=== PATIENT | female | born 1980 | race African-American/Black ===

== ENCOUNTER 2017-06-19 15:18 | Emergency (ER) | payer OTHER ==
[~2017-06-19 15:18] MED LIST: HYDR-971 PO
[2017-06-19 15:30] VITALS: BP 126/81
--- NOTE | 2017-06-19 16:10 | PHYS DOC ---
Past History Past Medical History: No Pertinent History Past Surgical History: Other Smoking: Less than 1pk/day Alcohol Use: None Drug Use: None Adult General Chief Complaint Chief Complaint: OB/UTERINE CONTRACTIONS HPI HPI 37-year-old female patient at 38 weeks of gestation complaining of abdominal contraction since this morning that are 10-12 minutes apart and getting closer. Patient states she feels movement. Patient denies vaginal bleeding or gush of fluid. Patient states she had with her last delivery but plans to have vaginal delivery with current . Patient states she had contraction 3 days ago and was seen at [facility] with 2 cm dilatation and was sent home. Review of Systems Review of Systems Constitutional: Denies fever or chills [] Eyes: Denies change in visual acuity, redness, or eye pain [] HENT: Denies nasal congestion or sore throat [] Respiratory: Denies cough or shortness of breath [] Cardiovascular: No additional information not addressed in HPI [] GI: Reports abdominal pain, denies nausea, vomiting, bloody stools or diarrhea [ ] : Denies dysuria or hematuria [] Musculoskeletal: Denies back pain or joint pain [] Integument: Denies rash or skin lesions [] Neurologic: Denies headache, focal weakness or sensory changes [] Endocrine: Denies polyuria or polydipsia [] All other systems were reviewed and found to be within normal limits, except as documented in this note. Allergies Allergies Allergies Coded Allergies Type Severity Reaction Last Updated Verified No Known Drug Allergies 02/14/16 No Physical Exam Physical Exam Constitutional: Well developed, well nourished, mild distress, non-toxic appearance. [] HENT: Normocephalic, atraumatic Eyes: PERRLA, EOMI, conjunctiva normal, no discharge. [] Neck: Normal range of motion, no tenderness, supple, no stridor. [] Cardiovascular:Heart rate regular rhythm, no murmur [] Lungs & Thorax: Bilateral breath sounds clear to auscultation [] Abdomen: Bowel sounds normal, soft, no tenderness, no masses, no pulsatile masses, gravid abdomen, no contraction, heart rate 173. Vaginal exam with present of sleeve sewer showed limited by rotation with 60% effacement and stage of -1. [] Skin: Warm, dry, no erythema, no rash. [] Back: No tenderness, no CVA tenderness. [] Extremities: No tenderness, no cyanosis, no clubbing, ROM intact, no edema. [] Neurologic: Alert and oriented X 3, normal motor function, normal sensory function, no focal deficits noted. [] Psychologic: Affect normal, judgement normal, mood normal. [] EKG EKG [] Radiology/Procedures Radiology/Procedures [] Course & Med Decision Making Course & Med Decision Making Evaluation of patient in ER showed 37 year old female patient at term presented with abdominal contraction. Patient had [address] Abdi on-call [employer] at [facility] informed at 1542 and patient transferred to [facility]. Dragon Disclaimer Dragon Disclaimer This electronic medical record was generated, in whole or in part, using a voice recognition dictation system. Departure Departure: Impression: Primary Impression: Active labor at term Disposition: 02 XFER SHT-TRM HOSP ([facility]) Condition: GUARDED Referrals: CHRISTOPHE QUINTERO MD (PCP) ISH WHITESIDE MD June 19, 2017 16:10
== END 2017-06-19 15:45 | disposition short-term general hospital (02) ==
LOC: ER 15:18
DX: O80 Encounter for full-term uncomplicated delivery (principal); F17.210 Nicotine dependence, cigarettes, uncomplicated; Z3A.38 38 weeks gestation of pregnancy
CPT/HCPCS: 99285

== ENCOUNTER 2017-12-13 23:53 | Emergency (ER) | payer OTHER ==
[~2017-12-13] VITALS: Ht 175.3 cm; Wt 84.8 kg
--- NOTE | 2017-12-14 | ED.ADGEN ---
Past History Past Medical History: No Pertinent History Past Surgical History: Smoking: Less than 1pk/day Alcohol Use: None Drug Use: None Adult General Chief Complaint Chief Complaint ".. I think I got a hemorrhoid flare.. I did have some small ones after delivery... But the started this past week... I been using the Preparation H but it has not relieved pain.. I am not eating much because I don't want poop...." HPI HPI Patient is a 37 year old female [employer] who presents with above hx and complaints of rectal pain. Patient denies any instrumentation or rectal sex. Patient has had some constipation. Patient denies any history of colitis or Crohn's. No family members who have colitis or Crohn's. Patient has not noted any bleeding but has severe pain with defecation. She has not had any fever or chills. Patient eyes any history of immunosuppression. No history of liver disease or alcohol use. Patient has never had a colonoscopy . Patient normally follows with Dr. Stinson Review of Systems Review of Systems Constitutional: Denies fever or chills [] Eyes: Denies change in visual acuity, redness, or eye pain [] HENT: Denies nasal congestion or sore throat [] Respiratory: Denies cough or shortness of breath [] Cardiovascular: No additional information not addressed in HPI [] GI: Denies abdominal pain, nausea, vomiting, bloody stools or diarrhea [patient] complaints of rectal pain and constipation : Denies dysuria or hematuria [] Musculoskeletal: Denies back pain or joint pain [] Integument: Denies rash or skin lesions [] Neurologic: Denies headache, focal weakness or sensory changes [] Endocrine: Denies polyuria or polydipsia [] All other systems were reviewed and found to be within normal limits, except as documented in this note. Family History Family History Noncontributory Current Medications Current Medications Current Medications Medications (Trade) Dose Ordered Sig/Bibiana Start Time Stop Time Status Last Admin Dose Admin Hydrocortisone Acetate (Anucort-Hc) 25 mg 1X STAT 12/14/17 00:29 12/14/17 00:30 UNV 12/14/17 00:40 25 MG Lidocaine HCl (Xylocaine 2% Topical 30gm Tube) 1 magalie 1X ONCE 12/14/17 00:30 12/14/17 00:31 UNV 12/14/17 00:40 1 MAGALIE Magnesium Citrate (Citroma) 296 ml 1X ONCE 12/14/17 01:00 12/14/17 01:01 UNV 12/14/17 00:59 296 ML Allergies Allergies Allergies Coded Allergies Type Severity Reaction Last Updated Verified No Known Drug Allergies 02/14/16 No Physical Exam Physical Exam Constitutional: Moderately acute distress, non-toxic appearance. [] HENT: Normocephalic, atraumatic, bilateral external ears normal, oropharynx moist, no oral exudates, nose normal. [] Eyes: PERRLA, EOMI, conjunctiva normal, no discharge. [] Neck: Normal range of motion, no tenderness, supple, no stridor. [] Cardiovascular:Heart rate regular rhythm, no murmur [] Lungs & Thorax: Bilateral breath sounds clear to auscultation [] Abdomen: Bowel sounds normal, soft, no tenderness, no masses, no pulsatile masses. Distended. Old hemorrhoid tags. No fissure noted. Does have hard stool in rectal vault and is tender on exam. No obvious abscess or mass noted limited digital exam Skin: Warm, dry, no erythema, no rash. [] Back: No tenderness, no CVA tenderness. [] Extremities: No tenderness, no cyanosis, no clubbing, ROM intact, no edema. [] Neurologic: Alert and oriented X 3, normal motor function, normal sensory function, no focal deficits noted. [] Psychologic: Affect anxious, judgement normal, mood normal. [] Current Patient Data Vital Signs Vital Signs Date Time Temp Pulse Resp B/P (MAP) Pulse Ox O2 Delivery O2 Flow Rate FiO2 12/14/17 00:06 98.0 98 16 98 Room Air EKG EKG [] Radiology/Procedures Radiology/Procedures [] Course & Med Decision Making Course & Med Decision Making Pertinent Labs and Imaging studies reviewed. (See chart for details). Patient to do sitz bath and or irrigation of rectal area as much as possible with very warm water. Patient must not allow herself to get constipated. Take milk of magnesia 30 mL daily. Use Anusol suppositories up to 4 times a day. Use a dibucaine or lidocaine cream to rectal area. If no improvement my need to see GI for a adequate exam of rectal area. Must follow-up primary. Return if any concerns. She was instructed abscess, mass or fissure could be missed on limited digital exam. May need procedural sedation for adequate exam and or possible CT of low pelvic area adequate evaluation. Must follow up if no improvement. [] Final Impression Final Impression 1. Rectal pain 2. Constipation[] Dragon Disclaimer Dragon Disclaimer This electronic medical record was generated, in whole or in part, using a voice recognition dictation system. ABE HAWKINS MD Dec 14, 2017 00:00
[2017-12-14 00:06] VITALS: BP 160/85
[2017-12-14] MEDS ORDERED: LIDOCAINE 2% TOPICAL JELLY 30GM TUBE. TP ONE ×2 (00:29→00:30)
[2017-12-14] MEDS ORDERED: HYDROCORTISONE ACETATE 25 MG SUPP.RECT ONE (00:29)
[2017-12-14] MEDS ORDERED: HYDROCORTISONE ACETATE 25 MG SUPP.RECT PR STA (00:29)
[2017-12-14] MEDS ORDERED: DIBU28OI RC (00:36)
[2017-12-14] MEDS ORDERED: HYDR25SU18 RC (00:36)
[2017-12-14] MEDS ORDERED: MAGNESIUM CITRATE 296 ML SOLUTION. ONE (00:59)
[2017-12-14] MEDS ORDERED: MAGNESIUM CITRATE 296 ML SOLUTION. PO ONE (01:00)
== END 2017-12-14 01:09 | disposition home or self-care (01) ==
LOC: ER 23:53
DX: K62.89 Other specified diseases of anus and rectum (principal); K59.00 Constipation, unspecified; F17.200 Nicotine dependence, unspecified, uncomplicated
CPT/HCPCS: 99284

== ENCOUNTER 2018-05-25 02:52 | Emergency (ER) | payer MEDICAID, OTHER ==
[~2018-05-25] VITALS: Ht 175.3 cm; Wt 77.1 kg
[2018-05-25 02:52] VITALS: BP 108/79
[~2018-05-25 02:52] MED LIST changes: +DIBU28OI RC; +HYDR-3165 PO; -HYDR-971 PO; +HYDR25SU18 RC
[2018-05-25] MEDS ORDERED: CLINDAMYCIN HCL 150 MG CAPSULE PO ONE (03:30)
[2018-05-25] MEDS ORDERED: NEOMY/BACITR/POLYMYXIN OINT PACKET. TP ONE (03:30)
--- NOTE | 2018-05-25 03:30 | PHYS DOC ---
Past History Past Medical History: No Pertinent History Past Surgical History: , Other Additional Past Surgical Histo: Thyroidectomy Smoking: Cigarettes, Less than 1pk/day Alcohol Use: Occasionally Drug Use: None Adult General Chief Complaint Chief Complaint: FOOT INJURY PAIN HPI HPI 38-year-old female presents with swelling to base of fifth toe on right foot 2 weeks. Patient denies known trauma. Denies fever or chills. Patient previously seen at [facility] 6 days ago with "x-ray without signs of fracture "and instructions to "brandee tape "toe. Patient presents tonight with increased swelling and now with bloody drainage. Patient reports "it feels like something needs to come out ". Patient denies current . Denies diabetes. Patient does report smoking. Reports last tetanus booster < 5 years ago. Review of Systems Review of Systems Constitutional: Denies fever or chills [] Eyes: Denies change in visual acuity, redness, or eye pain [] HENT: Denies nasal congestion or sore throat [] Respiratory: Denies cough or shortness of breath [] Cardiovascular: Denies chest pain or palpitations GI: Denies abdominal pain, nausea, vomiting, or diarrhea [] : Denies dysuria or hematuria [] Musculoskeletal: Denies back pain; reports pain to base of right fifth toe Integument: Reports swelling and bleeding Neurologic: Denies headache, focal weakness or sensory changes [] Complete systems were reviewed and found to be within normal limits, except as documented in this note. Current Medications Current Medications Current Medications Medications (Trade) Dose Ordered Sig/Bibiana Start Time Stop Time Status Last Admin Dose Admin Clindamycin HCl (Cleocin) 300 mg 1X ONCE 05/25/18 03:30 05/25/18 03:31 Neomycin/ Polymyxin/ Bacitracin (Triple Antibiotic Ointment) 1 pkt 1X ONCE 05/25/18 03:30 05/25/18 03:31 Allergies Allergies Allergies Coded Allergies Type Severity Reaction Last Updated Verified No Known Drug Allergies 02/14/16 No Physical Exam Physical Exam Constitutional: Well developed, well nourished, no acute distress, non-toxic appearance. [] HENT: Normocephalic, atraumatic Eyes: Conjunctiva normal, no discharge. [] Neck: Normal range of motion, supple Cardiovascular: Right DP +2, cap refill less than 2 seconds Lungs & Thorax: No respiratory distress, no accessory muscle use Skin: Warm, dry, mild erythema and induration to base of right fifth toe, open fissure noted between the fourth and fifth toes in webspace with purulent serosanguineous drainage from site. Extremities: Swelling and induration noted to base of right fifth toe, mild fluctuance appreciated dorsally Neurologic: Alert and oriented X 3, no focal deficits noted. [] Psychologic: Affect normal, judgement normal, mood normal. [] Current Patient Data Vital Signs Vital Signs Date Time Temp Pulse Resp B/P (MAP) Pulse Ox O2 Delivery O2 Flow Rate FiO2 05/25/18 02:52 98.3 100 18 100 Room Air EKG EKG [] Radiology/Procedures Radiology/Procedures XR R foot 3 view (preliminary interpretation by ED physician): NO acute fracture /dislocation, NO radio-opaque foreign body appreciated. at medial base of MCP of 5th toe near sesamoid bone. Course & Med Decision Making Course & Med Decision Making Pertinent Imaging studies reviewed. (See chart for details) Patient presents with report of swelling and pain to base of the pinky toe on right foot 2 weeks. Patient denies known trauma. Patient previously seen at outside facility with "normal x-ray ". Patient had been brandee taping for support. Presents this evening due to bleeding and increased swelling with drainage. Signs of infection. Empiric antibiotics initiated. Wound cleaned. Mild fluctuance noted. Pain addressed. X-ray obtained without signs of fracture or radio opaque foreign body. Concern for retained radiolucent foreign body. I&D performed. Copious irrigation utilized. Wound packed and dressed. Patient placed in a postop shoe. Patient educated to remove packing in 24 hours. Patient stable for discharge with outpatient follow-up with PCP/ Orthopedics. Orthopedic referral provided.. Discussed findings and plan with patient, who acknowledges understanding and agreement. Dragon Disclaimer Dragon Disclaimer This electronic medical record was generated, in whole or in part, using a voice recognition dictation system. Incision and Drainage Incision and Drainage : Site: dorsal webspace between 4th and 5th toes on right Blade Size: 11 Progress Verbal consent obtained. Time out performed. Hand hygiene utilized. Wound cleaned with ChloraPrep. Anesthesia obtained via a 25-gauge hypodermic needle with (3) mL's of lidocaine 2% with epinephrine for digital block to webspace between 4th and 5th toes. Incision made to dorsal webspace between 4th and 5th toes. Wound explored. NO definitive foreign body appreciated. Copious irrigation utilized (400mls of 0.9% NS). 1/2 inch plain gauze packed. Patient tolerated procedure well and without difficulty. Empiric antibiotic ointment applied prior to sterile dressing. Post op shoe splint then applied. Splinting Splinting : Location: R foot Pre-Made Type: post-op shoe Pre-Proc Neuro Vasc Exam: normal Post-Proc Neuro Vasc Exam: normal, unchanged from pre-exam Departure Departure: Impression: Primary Impression: Right foot infection Disposition: 01 HOME, SELF-CARE Condition: STABLE Referrals: CHRISTOPHE QUINTERO MD (PCP) SAMMY BOB MD Patient Instructions: Incision and Drainage, Care After, Podiatric Shoe, Skin Infections Additional Instructions: Do not soak your wound. You may shower. Clean wound daily with soap and water. Change dressing 2 times daily. Use topical antibiotic ointment with each dressing change. Remove packing in 24 hours. Scripts Mupirocin (MUPIROCIN) 22 Gm Oint...g. 1 PIERCE TP TID for Infection for 7 Days, #22 GM Prov: JASON COSTA DO 05/25/18 Clindamycin Hcl (CLINDAMYCIN HCL) 300 Mg Capsule 1 CAP PO TID for infection for 7 Days, #21 CAP Prov: JASON COSTA DO 05/25/18 Hydrocodone Bit/Acetaminophen (NORCO 5-325 TABLET) 1 Each Tablet 0.5-1 TAB PO Q6HRS PRN for PAIN, #10 TAB Prov: JASON COSTA DO 05/25/18 JASON COSTA DO May 25, 2018 03:30
[2018-05-25] MEDS ORDERED: KETOROLAC 60 MG/2 ML VIAL. IM ONE (03:36)
[2018-05-25] MEDS ORDERED: CLIN300C8 PO (03:45)
[2018-05-25] MEDS ORDERED: MUPI22OI2 TP (03:45)
[2018-05-25] MEDS ORDERED: HYDR-3165 PO (03:45)
[2018-05-25] MEDS ORDERED: LIDOCAINE 2%/EPI 1:100,000 20 ML VIAL. ONE (03:57)
[2018-05-25] MEDS ORDERED: KETOROLAC 30 MG/ML VIAL. IM ONE (04:00)
[2018-05-25] MEDS ORDERED: LIDOCAINE 2%/EPI 1:100,000 20 ML VIAL. IJ ONE (04:30)
--- NOTE | 2018-05-25 07:54 | RAD ---
Right foot radiograph 05/25/2018 3:40 AM INDICATION: Swelling and pain at the base of the fifth digit COMPARISON: None available. TECHNIQUE: 3 views of the right foot are provided. FINDINGS: There is no acute fracture or dislocation. Bone mineralization is within normal limits. Mild degenerative changes of the tarsals noted. Regional soft tissues are within normal limits. There is no soft tissue gas or osseous erosion. IMPRESSION: No acute fracture or dislocation. Electronically signed by: Sahra Hutton MD (05/25/2018 7:51 AM) [id number]
== END 2018-05-25 04:40 | disposition home or self-care (01) ==
LOC: ER 02:52
DX: L08.89 Other specified local infections of the skin and subcutaneous tissue (principal); R22.41 Localized swelling, mass and lump, right lower limb; M79.674 Pain in right toe(s); F17.210 Nicotine dependence, cigarettes, uncomplicated
CPT/HCPCS: 10060; 73630; 96372; 99284; J1885

== ENCOUNTER 2019-09-07 22:13 | Emergency (ER) | payer SELFPAY ==
[~2019-09-07] VITALS: Ht 274.3 cm; Wt 81.8 kg
[~2019-09-07 22:13] MED LIST changes: +CLIN300C8 PO; +MUPI22OI2 TP
[2019-09-07] MEDS ORDERED: diazePAM 5 MG TABLET. PO ONE (22:45)
[2019-09-07] MEDS ORDERED: GLUCAGON,HUMAN RECOMBINANT 1 MG KIT. IV ONE (22:45)
--- NOTE | 2019-09-07 23:38 | RAD ---
Exam: CT neck without contrast INDICATION: Possible foreign body TECHNIQUE: Sequential axial images through the neck obtained without IV contrast. Sagittal and coronal reformatted images were reconstructed from the axial data and reviewed. Comparisons: None FINDINGS: Visualized intracranial structures are unremarkable. Visualized portions of the paranasal sinuses and mastoid air cells are well-pneumatized. There is mild enlargement of the adenoid tonsils. Tiny calcifications noted within the left adenoid tonsil. Otherwise, nasopharynx, oropharynx, hypopharynx and larynx are patent. Thyroid and salivary glands are within normal limits. No enlarged cervical There is a cyst at the left upper lung. No suspicious osseous lesions or acute fractures. IMPRESSION: 1. Mild enlargement of the adenoid tonsils with tiny calcifications noted at the left adenoid tonsil. 2. No discrete radiopaque foreign body identified. Exposure: One or more of the following in the visualized dose reduction techniques were utilized for this examination: 1. Automated exposure control 2. Adjustment of the MA and/or KV according to patient size 3. Use of iterative of reconstructive technique Electronically signed by: Dre Hodge MD (09/07/2019 11:35 PM) [id number]
[2019-09-08] MEDS ORDERED: diazePAM 5 MG TABLET. PO ONE
--- NOTE | 2019-09-08 01:03 | PHYS DOC ---
Past History Past Medical History: No Pertinent History Past Surgical History: No Surgical History Additional Past Surgical Histo: Thyroidectomy Smoking: Cigarettes, Less than 1pk/day Alcohol Use: None Drug Use: None Adult General Chief Complaint Chief Complaint: FOREIGN BODY HPI HPI Patient is a 39 year old [sex] who presents with a feeling that there is something stuck between her nose and throat. She states she was eating some retell when she suddenly got this feeling. She states that it feels like she cannot get it out. She has never had anything like this previously. She states that it does not feel like something is stuck in her throat. Review of Systems Review of Systems General: Denies fever, chills, sweats, fatigue Eyes: Denies drainage, blurred vision, eye redness HENT: Denies rhinorrhea, sore throat, earache Respiratory: Denies cough, shortness of breath, wheezing Cardiac: Denies edema, palpitations, chest pain GI: Denies abdominal pain, Nausea, vomiting MSK: Denies back pain, neck pain Skin: Denies rash, jaundice Neuro: Denies headache, dizziness Psychiatric: Denies SI/HI Current Medications Current Medications Current Medications Medications (Trade) Dose Ordered Sig/Bibiana Start Time Stop Time Status Last Admin Dose Admin Diazepam (Valium) 5 mg 1X ONCE 09/08/19 00:00 09/08/19 00:01 DC 09/07/19 23:59 5 MG Glucagon (Glucagen Kit) 1 mg 1X ONCE 09/07/19 22:45 09/07/19 22:46 DC 09/07/19 22:48 1 MG Allergies Allergies Allergies Coded Allergies Type Severity Reaction Last Updated Verified No Known Drug Allergies 02/14/16 No Physical Exam Physical Exam General: Awake, alert, NAD. Well Nourished, well hydrated. Cooperative HEENT: Atraumatic, EOMI, PERRL, airway patent, moist oral mucosa Neck: Supple, trachea midline Respiratory: CTA bilaterally, normal effort, no wheezing/crackles CV: RRR, no murmur, cap refill <2 GI: Soft, nondistended, nontender, no masses MSK: No obvious deformities Skin: Warm, dry, intact Neuro: A&O x3, speech NL, sensory and motor grossly intact, no focal deficits Psych: Normal affect, normal mood, not suicidal or homicidal Current Patient Data Vital Signs Vital Signs Date Time Temp Pulse Resp B/P (MAP) Pulse Ox O2 Delivery O2 Flow Rate FiO2 09/08/19 00:01 94 16 126/82 (97) 100 Room Air 09/07/19 22:13 98.7 EKG EKG [] Radiology/Procedures Radiology/Procedures [] Course & Med Decision Making Course & Med Decision Making Pertinent Labs and Imaging studies reviewed. (See chart for details) Patient is a 39-year-old female who presents to the emergency room feeling like there is something stuck in the back of her throat. Patient is not spitting and is not having difficulty swallowing at this time. She was given glucagon and Valium. Patient continued to have the feeling and a CT was done which shows no foreign body or perforation. It is likely that she scratched the back of her throat with a chip causing this feeling. Symptoms improved while in the emergency room. Patient's test results and vitals while in the ED were fully reviewed and discussed with the patient. Patient is stable and at this time does not need admission to the hospital. We have discussed strict return precautions and the importance of following up with their Primary Care Physician. Patient stated understanding and was given an opportunity to ask any questions. Patient is in agreement with plan. Dragon Disclaimer Dragon Disclaimer This electronic medical record was generated, in whole or in part, using a voice recognition dictation system. Departure Departure: Impression: Primary Impression: Globus sensation Disposition: 01 HOME/RESIDENCE PRIOR TO ADM Condition: STABLE Referrals: PCP,ESTELLA (PCP) Patient Instructions: Globus Syndrome Justification of Admission: Justification of Admission: Justification of Admission Dx: No BRIAN AVALOS MD Sep 08, 2019 01:03
[2019-09-08 01:28] VITALS: BP 132/62
== END 2019-09-08 01:30 | disposition home or self-care (01) ==
LOC: ER 22:13
DX: F45.8 Other somatoform disorders (principal); F17.210 Nicotine dependence, cigarettes, uncomplicated
CPT/HCPCS: 70490; 99284; J1610